=== PATIENT | male | born 1995 | race Caucasian/White ===

== ENCOUNTER 2021-03-29 01:25 | Emergency (ER) | payer OTHER ==
[2021-03-29] MEDS ORDERED: XYLOCAINE 1% HCL 20 ML MDV IJ ONE (01:26)
[2021-03-29 01:40] VITALS: O2SAT 97
--- NOTE | 2021-03-29 02:16 | ERPHSYRPT ---
- History of Present Illness Time Seen by Provider: 03/29/21 02:15 Source: patient Exam Limitations: no limitations Patient Subjective Stated Complaint: " My throat hurts on both sides, I think I have tonsilitis ". Triage Nursing Assessment: Pt presents to ER with complaints of sore throat since yesterday. Pt is alert and oriented x 3. Is noted autistic. Pt throat appears to be slightly irritated and red. Pt states has pain when swallowing. Pt skin is pink, warm, and dry. Pt respirations unlabored at this time. Abdomen soft and nontender. States vomited " the other day " but not today. Physician History: This is a 25-year-old white male with a history of autism and presents with 2- day history of sore throat and mild cough. He has no shortness of breath. And has no chest pain. He denies fever and he denies chills. He has not been exposed anyone with similar symptoms. Timing/Duration: gradual onset, days (2) ENT Location: throat Prearrival Treatment: no prearrival treatment Modifying Factors: Improves With: coughing (Very mild) Associated Symptoms: cough (Very mild), sore throat, No facial pain/swelling, No headache Allergies/Adverse Reactions: No Known Drug Allergies Allergy (Verified 03/29/21 01:40) Hx Tetanus, Diphtheria Vaccination/Date Given: No Hx Influenza Vaccination/Date Given: No Hx Pneumococcal Vaccination/Date Given: No Immunizations Up to Date: Yes Travel Risk - International Travel Have you traveled outside of the country in past 3 weeks: No - Coronavirus Screening Are you exhibiting any of the following symptoms?: No Close contact with a COVID-19 positive Pt in past 14-21 Days: No - Vaccine Status Have you recieved a Covid-19 vaccination: No - Review of Systems Constitutional: No Symptoms Eyes: No Symptoms Respiratory: No Symptoms Cardiac: No Symptoms Abdominal/Gastrointestinal: No Symptoms Genitourinary Symptoms: No Symptoms Musculoskeletal: No Symptoms Skin: No Symptoms Neurological: No Symptoms Psychological: No Symptoms Endocrine: No Symptoms Hematologic/Lymphatic: No Symptoms Immunological/Allergic: No Symptoms All Other Systems: Reviewed and Negative - Past Medical History Pertinent Past Medical History: Yes Psycho-Social History: Attention Deficit Disorder Other Medical History: autism - Past Surgical History Past Surgical History: No - Social History Smoking Status: Never smoker Exposure to second hand smoke: No Patient Lives Alone: No - Nursing Vital Signs Nursing Vital Signs: Initial Vital Signs Temperature 98.1 F 03/29/21 01:35 Pulse Rate 79 03/29/21 01:35 Respiratory Rate 18 03/29/21 01:35 Blood Pressure 134/65 03/29/21 01:35 O2 Sat by Pulse Oximetry 97 03/29/21 01:35 Pain Scale Pain Intensity 9 - Physical Exam General Appearance: no apparent distress, alert, anxiety Eye Exam: bilateral eye: normal inspection, PERRL, EOMI Ear Exam: bilateral ear: auricle normal Nasal Exam: normal inspection Throat Exam: pharynx swelling, pharynx tenderness Neck Exam: normal inspection (With pharyngeal redness), non-tender, supple, full range of motion, trachea midline Cardiovascular/Respiratory Exam: chest non-tender, normal breath sounds, regular rate/rhythm, heart sounds normal, no respiratory distress Abdominal Exam: non-tender Neurologic Exam: alert, oriented x 3, cooperative, 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 tested, normal mood/affect, nml cerebellar function, nml station & gait, sensation nml Skin Exam: normal color, warm, dry SpO2 Interpretation: normal SpO2: 97 O2 Delivery: Room Air - Course Nursing assessment & vital signs reviewed: Yes Ordered Tests: Medication Summary Discontinued Medications Generic Name Dose Route Start Last Admin Trade Name Anuel PRN Reason Stop Dose Admin Hydrocodone Bitart/Acetaminophen 10 ml 03/29/21 02:47 03/29/21 03:00 Hydrocodone-Acetamin 2.5-108/5 Ml Solution PO 03/29/21 02:48 10 ml STAT STA Administration Ceftriaxone Sodium 1,000 mg 03/29/21 02:46 03/29/21 03:04 Rocephin 1000 Mg Inj IM 03/29/21 02:47 1,000 mg STAT ONE Administration Ceftriaxone Sodium Confirm 03/29/21 02:55 Rocephin 1000 Mg Inj Administered 03/29/21 02:56 Dose 1,000 mg .ROUTE .STK-MED ONE Methylprednisolone Sodium Succinate 125 mg 03/29/21 02:46 03/29/21 03:02 Solu-Medrol 125 Mg IM 03/29/21 02:47 125 mg STAT ONE Administration Methylprednisolone Sodium Succinate Confirm 03/29/21 02:55 Solu-Medrol 125 Mg Administered 03/29/21 02:56 Dose 125 mg .ROUTE .STK-MED ONE - Departure Departure Disposition: Home Clinical Impression: Pharyngitis Condition: Stable Critical Care Time: No Referrals: DOCTOR,NO FAMILY [Primary Care Provider] - Additional Instructions: Drink plenty of fluids. Take your medication as prescribed. Follow-up with your primary care physician for persistent symptoms. Prescriptions: Hydrocodone/Acetaminophen [Hydrocodone-Acetamn 7.5-325/15] 10 ml PO Q8H PRN PRN #120 solution MDD 30 ml PRN Reason: Cough Prednisone 10 mg [Deltasone 10 mg] 10 mg PO TID #12 tablet Azithromycin 250 mg [Zithromax 250 MG TABLET] 250 mg PO ZPACK #6 tablet
[2021-03-29] MEDS ORDERED: Rocephin 1000 MG INJ IM ONE (02:46)
[2021-03-29] MEDS ORDERED: solu-MEDROL 125 MG IM ONE (02:46)
[2021-03-29] MEDS ORDERED: HYDROCODONE-ACETAMIN 2.5-108/5 ML SOLUTION PO STA (02:47)
[2021-03-29] MEDS ORDERED: solu-MEDROL 125 MG ONE (02:55)
[2021-03-29] MEDS ORDERED: Rocephin 1000 MG INJ ONE (02:55)
[2021-03-29 03:22] VITALS: BP 140/80; PULSE 68
== END 2021-03-29 03:20 | disposition home or self-care (01) ==
LOC: ED 01:25
DX: J02.9 Acute pharyngitis, unspecified (principal)
CPT/HCPCS: 96372; 99284; J0696; J2930; A9270-GY